=== PATIENT | male | born 1950 | race Caucasian/White ===

== ENCOUNTER → 2020-12-31 06:59 | Outpatient (CLI) | payer MEDICARE, SELFPAY ==
[2021-01-02 18:21] LABS: SARS-CoV-2 RNA PCR Negative
== END ==
PROVIDERS: PCP Internal Medicine; Visit Provider Internal Medicine Pulmonary Disease
DX: T86.810 Lung transplant rejection (principal); Z20.822 Contact with and (suspected) exposure to COVID-19
CPT/HCPCS: C9803; U0003; U0005

== ENCOUNTER → 2021-01-11 06:58 | Outpatient (CLI) | payer MEDICARE, SELFPAY ==
[2021-01-11 17:21] LABS: SARS-CoV-2 RNA PCR Negative
== END ==
PROVIDERS: PCP Internal Medicine; Visit Provider Internal Medicine Pulmonary Disease
DX: Z01.812 Encounter for preprocedural laboratory examination (principal); Z20.822 Contact with and (suspected) exposure to COVID-19
CPT/HCPCS: C9803; U0003; U0005

== ENCOUNTER 2021-07-19 07:53 | Outpatient (CLI) | payer MEDICARE, SELFPAY ==
--- NOTE | 2021-08-03 18:49 | WPDSLEEPSTUD ---
Sleep Study Date of Study: 07/19/21 Ordering Provider: Elmer Lay, Interpreting Physician: Aisha Brown MD Sleep Study Type: Split Polysomnogram Height: 1.8 m Weight: 108.8 kg Body Mass Index: 33.4 Neck Circumference (inches): 18 [place]: 3 Reason for Sleep Study Obstructive sleep apnea on CPAP, initial studies [id number] * 05/08/2009 CPAP retitration, optimal pressure 14 cm. BMI was 39.7. Sleep History Facundo Ortega is a 71 year old man with obstructive sleep apnea on CPAP. He also has a history of bilateral lung transplant 2005. He has a history of obstructive sleep apnea syndrome with his last re-titration in 2008 with an optimal pressure of 14 cm. He currently wakes himself up snoring. There is a positive family history with his father having sleep apnea. This patient has use sleeping pills. He occasionally awakens from sleep feeling short of breath. He constantly awakens at night with heartburn, belching or coughing. He frequently snores loudly. He occasionally has trouble sleeping with a cold. He rarely wakes up gasping for breath at night. He occasionally has breathing problems at night observed by others. He occasionally sweats excessively at night and notices his heart pounding or beating irregularly at night. He frequently falls asleep during the day never involuntarily and never while driving. He does not have loss of muscle tone with strong emotion. He does not have daytime difficulties due to excessive sleepiness. He does not feel paralyzed on waking or falling asleep. He rarely has vivid dreamlike scenes upon awakening or falling asleep. He does not feel afraid to go to sleep. He occasionally has nightmares. He rarely remembers his dreams. He does not have racing thoughts. He occasionally feels sad or depressed. He occasionally has anxiety. He rarely has muscular tension. He occasionally notices parts of his body jerking. He rarely kicks at night. He rarely has crawling and aching feelings in his legs. He occasionally has leg pain at night. He does not have morning jaw pain. His normal bedtime is 11:00 p.m. taking 1-2 hours to fall asleep typically waking twice at night to urinate. He may stay awake 10 minutes. He wakes in the morning at 9:00 a.m.. On the weekends his schedule is similar. He estimates getting 8 hours of sleep at night. He takes naps in the afternoon or evening. A short nap is not refreshing. He feels better in the afternoon compared to other times of day he occasionally wakes up feeling refreshed, not always. Habits: Never smoked tobacco. No caffeine, alcohol or recreational drugs. COUNT INCLUDES THE [facility] Past Medical History Medical History (Updated 08/03/21 @ 20:42 by Aisha Brown MD) Back pain Chronic kidney disease Coronary artery disease Depression Diabetes Hypertension Obstructive sleep apnea Pneumonia due to COVID-19 virus Type 2 diabetes mellitus Surgical History Surgical History (Updated 08/03/21 @ 20:42 by Aisha Brown MD) Lung replaced by transplant Double lung transplant S/P CABG x 3 Status post surgical removal of malignant neoplasm of skin Skin cancer removed from right shoulder. Family History Family History (Updated 06/27/21 @ 10:01 by Ivone Childs [facility]) Mother Diabetes mellitus Social History Social History Smoking status: Never smoker Alcohol intake: never Medications Home Medications Medication Instructions Recorded Confirmed Type cetirizine 10 mg tablet 10 mg PO DAILY PRN 12/16/20 06/27/21 History fluticasone propionate 50 1 spray INTRANASAL Q12H 12/16/20 06/27/21 History mcg/actuation nasal spray,suspension multivitamin 1 tablet PO DAILY 12/16/20 06/27/21 History mycophenolate sodium 360 mg 720 mg PO BID 12/16/20 06/27/21 History tablet,delayed release sumatriptan succinate 50 mg tablet See Rx Instructions PO .COMPLEX 12/16/20 06/27/21 History alprazolam 0.5 mg tablet 1 mg PO DAILY tablet
[2021-08-03 20:54] VITALS: BMI 33.4
== END 2021-07-20 06:11 | disposition home or self-care (01) ==
LOC: ANHCSM 07:55
PROVIDERS: PCP Internal Medicine; Visit Provider Internal Medicine Pulmonary Disease
DX: G47.33 Obstructive sleep apnea (adult) (pediatric) (principal); Z99.89 Dependence on other enabling machines and devices
CPT/HCPCS: 95811

== ENCOUNTER 2022-01-02 11:44 | Outpatient (CLI) | payer MEDICARE, SELFPAY ==
[2022-01-02 12:36] LABS: Alanine Aminotransferase 16 U/L (4-50); Albumin Level 3.7 g/dL (3.5-5.1); Alkaline Phosphatase 53 U/L (38-126); Anion Gap 5 mmol/L (8-16); Aspartate Amino Transferase 18 U/L (17-59); Bilirubin,Total 0.2 mg/dL (0.2-1.3); Blood Urea Nitrogen 25 mg/dL (9-20); Calcium 8.9 mg/dL (8.4-10.2); Carbon Dioxide 29 mmol/L (22-30); Chloride 105 mmol/L (98-107); Estimated Glomerular Filt Rate 46; Glucose 194 mg/dL (65-110); Potassium 4.2 mmol/L (3.4-5.0); Sodium 139 mmol/L (137-145)
[2022-01-02 13:05] LABS: Thyroid Stimulating Hormone 0.518 uIU/mL (0.465-4.680)
== END 2022-01-02 11:45 | disposition home or self-care (01) ==
LOC: ANHLAB 11:47
PROVIDERS: PCP Internal Medicine; Visit Provider Internal Medicine
DX: E11.9 Type 2 diabetes mellitus without complications (principal); Z79.4 Long term (current) use of insulin; R06.00 Dyspnea, unspecified
CPT/HCPCS: 36415; 80053; 84443

== ENCOUNTER 2022-03-28 13:30 | Outpatient (RCR) | payer MEDICARE, SELFPAY ==
[2022-01-29 13:40] LABS: Glucose Point of Care 142 mg/dl (65-105)
[2022-01-31 15:26] LABS: Glucose Point of Care 64 mg/dl (65-105)
[2022-01-31 15:26] LABS: Glucose Point of Care 57 mg/dl (65-105)
[2022-01-31 15:26] LABS: Glucose Point of Care 73 mg/dl (65-105)
[2022-01-31 15:27] LABS: Glucose Point of Care 88 mg/dl (65-105)
[2022-02-07 13:41] LABS: Glucose Point of Care 224 mg/dl (65-105)
[2022-02-07 14:37] LABS: Glucose Point of Care 224 mg/dl (65-105)
[2022-03-12 14:35] LABS: Glucose Point of Care 168 mg/dl (65-105)
[2022-03-26 14:40] LABS: Glucose Point of Care 120 mg/dl (65-105)
== END 2022-03-28 14:39 | disposition home or self-care (01) ==
LOC: ANHCPREHAB 13:30
PROVIDERS: PCP Internal Medicine
DX: I20.8 Other forms of angina pectoris (principal)
CPT/HCPCS: 93798

== ENCOUNTER 2023-07-17 14:14 | Outpatient (CLI) | payer MEDICARE, SELFPAY ==
--- NOTE | ~2023-07-17 | CT_ITS ---
EXAMINATION: CT abdomen pelvis w con DATE: 07/17/2023 14:50 INDICATION: Diverticulitis. TECHNIQUE: Computed tomography (CT) of the abdomen and pelvis was performed with 100 mL Omnipaque 350 intravenous contrast. Automated exposure control and iterative reconstruction technique were employe d. The dose-length product was 1011.53 mGy-cm. COMPARISON: None. FINDINGS: The visualized portions of the lung bases demonstrate mild atelectasis and mild chronic rod g disease. No pleural effusion. The heart size is normal. No pericardial effusion. There are coronary artery calcifications. There is mild elevation of left hemidiaphragm. The gallbladder is normal. Dilip cifications in the spleen are consistent with old granulomatous disease. The pancreas and adrenal gla nds are normal. There is cortical thinning of the kidneys. There is a 1.6 cm hyperdense mass in right kidney. There are cysts in left kidney measuring up to 15 mm . There is calcified atherosclerosis of the aorta and many of the other arteries. The prostate is mildly enlarged. There is a left inguinal hernia containing fat. There is diverticulosis of the colon without evidence of diverticulitis. There are no dilated loops of bowel. The appendix is normal. There are no pathologically enlarged lymph no ernesto. There is no free intraperitoneal fluid. There is mild thoracic spondylosis and severe lower lumb ar spondylosis. IMPRESSION: 1. No evidence of diverticulitis. 2. 1.6 cm kidney mass which may be a hemorrhagic cyst or less likely a neoplasm. Abdomen CT without a nd with contrast is recommended. Reviewed, dictated and finalized at location A. IMPRESSION: 1. No evidence of diverticulitis. 2. 1.6 cm kidney mass which may be a hemorrhagic cyst or less likely a neoplasm . Abdomen CT without and with contrast is recommended.
[2023-07-17 14:48] LABS: Estimated Glomerular Filt Rate > 60
== END 2023-07-17 14:15 | disposition home or self-care (01) ==
PROVIDERS: PCP Internal Medicine
DX: K57.92 Diverticulitis of intestine, part unspecified, without perforation or abscess without bleeding (principal)
CPT/HCPCS: 74177; Q9967

== ENCOUNTER 2023-08-08 12:35 | Outpatient (CLI) | payer MEDICARE, SELFPAY ==
--- NOTE | ~2023-08-08 | CT_ITS ---
EXAMINATION: CT abdomen pelvis wo/w con DATE: 08/08/2023 13:21 INDICATION: Right kidney mass. TECHNIQUE: Computed tomography (CT) of the abdomen and pelvis was performed without and with 100 mL O mnipaque 350 intravenous contrast. Automated exposure control and iterative reconstruction technique were employed. The dose-length product was 1977.70 mGy-cm. COMPARISON: CT abdomen and pelvis 07/17/2023 FINDINGS: The visualized portions of the lung bases demonstrate chronic interstitial lung disease. No pleural effusion. Calcified right hilar lymph nodes are consistent with old granulomatous disease. T he heart size is normal. There are coronary artery calcifications. There are changes of coronary emmanuel ry bypass grafting. No pericardial effusion. Calcifications in the liver and spleen are consistent wi th old granulomatous disease. There are gallstones in the gallbladder, which is normal in size. The p ancreas and adrenal glands are normal. There is cortical thinning of the kidneys. There is a 16 mm en hancing mass in right kidney inferior pole. There is a 12 mm cyst in left kidney. There is diverticul osis of the colon without evidence of diverticulitis. There are no dilated loops of bowel. The append ix is normal. There is mild thoracic spondylosis. There is severe lower lumbar spondylosis. IMPRESSION: 1. 16 mm enhancing mass in right kidney, consistent with renal cell carcinoma. Reviewed, dictated and finalized at location E.
== END 2023-08-08 12:36 | disposition home or self-care (01) ==
PROVIDERS: PCP Internal Medicine; Visit Provider Clinical Nurse Specialist
DX: R93.5 Abnormal findings on diagnostic imaging of other abdominal regions, including retroperitoneum (principal); N28.89 Other specified disorders of kidney and ureter
CPT/HCPCS: 74178; Q9967

== ENCOUNTER 2023-09-01 11:06 | Inpatient (IN) | payer MEDICARE, SELFPAY ==
[2023-09-01] VITALS (18 sets, daily range): BP systolic 93–155; BP diastolic 58–76; PULSE 61–100; RESP 13–20; TEMP 36.1–36.4; O2SAT 93–97; BMI 31.0
--- NOTE | ~2023-09-01 | CT_ITS ---
EXAMINATION: CT cervical spine wo con DATE: 09/01/2023 14:13 INDICATION: fall TECHNIQUE: Computed tomography (CT) of the cervical spine was performed without intravenous contrast. Automated exposure control and iterative reconstruction technique were employed. The dose-length pro duct was 428.00 mGy-cm. COMPARISON: None. FINDINGS: Vertebral Body Alignment: Multilevel trace anterolistheses, presumably on a degenerative basis. Craniocervical and atlantoaxial alignment: Moderate degenerative change. Alignment intact. Osseous structures/fracture: No evidence of a lytic or blastic process in the visualized spine. No e vidence of acute fracture. Cervical soft tissues: The paraspinal soft tissues planes are maintained. Trace left mastoid fluid. B ilateral apical bullae. Degenerative changes: Multilevel moderate degenerative disc disease and facet arthropathy. No severe central canal or neural foraminal narrowing. IMPRESSION: No acute fracture or traumatic malalignment in the cervical spine. Reviewed, dictated and finalized at location K.
--- NOTE | ~2023-09-01 | XR_ITS ---
EXAM: XR tibia fibula LT 2V DATE: 09/01/2023 17:33 HISTORY: left lobato pain after fall . COMPARISON: None available. FINDINGS: Decreased mineralization. No fracture or dislocation. No lytic or blastic lesion. Degenera tive changes in the knee and ankle. Quadriceps and patellar enthesopathy. No erosion or periosteal ch juan francisco. Vascular calcifications. Medial surgical clips. IMPRESSION: No acute osseous finding in the left tibia or fibula. Reviewed, dictated and finalized at location K.
--- NOTE | ~2023-09-01 | XR_ITS ---
EXAMINATION: XR ribs LT 2V w CXR 2V Exam Date/Time: 09/01/2023 13:45 CDT HISTORY: fall, left lateral rib pain Comparison: 12/20/2017; CT cap 09/01/2023. RESULT: Lines, tubes, and devices: Intact sternotomy wires. Lungs and pleura: Coarse diffuse interstitial changes. Left hemidiaphragm elevation.. Cardiothymic silhouette: Stable. Other: No acute osseous or upper abdominal finding. Known left rib fracture is not radiographically identified. IMPRESSION: No acute cardiopulmonary process. Reviewed, dictated and finalized at location K.
--- NOTE | ~2023-09-01 | US_ITS ---
EXAMINATION: US carotid duplex BI DATE: 09/02/2023 09:12 INDICATION: Syncope. TECHNIQUE: Grayscale, color Doppler, and pulsed Doppler images of the cervical carotid arteries were obtained. The degree of vessel stenosis is placed in one of the following categories: normal, <50%, 5 0-69%, >=70% but less than near-occlusion, near-occlusion, or total occlusion. Note that percent sten osis relative to normal distal artery lumen diameter is indirectly measured from velocity measurement s as described by Blair, et al. Radiology 2003; 229:340-346. COMPARISON: None. FINDINGS: RIGHT: The right common carotid artery (CCA) peak systolic velocity (PSV) is 70 cm/s. The right internal car otid artery (ICA) PSV is 75 cm/s. The right ICA end-diastolic velocity (EDV) is 20 cm/s. The right IC A/CCA PSV ratio is 1.1. Grayscale and color Doppler images yield an estimate of <50% diameter reducti on from plaque in the ICA. There is antegrade flow in the right vertebral artery. LEFT: The left CCA PSV is 83 cm/s. The left ICA PSV is 154 cm/s. The left ICA EDV is 38 cm/s. The left ICA/ CCA PSV ratio is 1.9. Grayscale and color Doppler images yield an estimate of <50% diameter reduction from plaque in the ICA. There is antegrade flow in the left vertebral artery. IMPRESSION: 1. <50% stenosis in the right internal carotid artery. 2. <50% stenosis in the left internal carotid artery. Reviewed, dictated and finalized at location E.
--- NOTE | ~2023-09-01 | XR_ITS ---
EXAM: XR mandible min 4V DATE: 09/01/2023 17:33 HISTORY: Right chin pain/swelling after fall . COMPARISON: None available. FINDINGS: Normal mineralization. Frontal chin down view limited by overlapping soft tissues. No frac ture or dislocation. No lytic or blastic lesion. Joint spaces and physes are maintained. No erosion o r periosteal change. Soft tissues within normal limits. IMPRESSION: No acute osseous finding in the mandible. Reviewed, dictated and finalized at location K.
--- NOTE | ~2023-09-01 | CT_ITS ---
EXAMINATION: CT chest abdomen pelvis w con DATE: 09/01/2023 14:13 INDICATION: fall,lt chest pain, left upper abdominal pain . TECHNIQUE: Computed tomography (CT) of the chest, abdomen, and pelvis was performed with 100 mL Omnip aque-350 intravenous contrast. Automated exposure control and iterative reconstruction technique were employed. The dose-length product was 1691.57 mGy-cm. COMPARISON: None FINDINGS: CHEST: No thoracic aortic injury. Moderate arch calcification. No mediastinal hematoma. No pericardial effusion. Heavy coronary artery calcification. Prior CABG. No acute lung injury. Archi tectural distortion and emphysematous change. No pleural effusion or pneumothorax. ABDOMEN/PELVIS: No solid organ injury. Hepatic steatosis. Right inferior pole mass. No evidence of bowel or mesenteric injury. Cholelithiasis. No free fluid or free air. No retroperitoneal hematoma. Pelvic contents are atraumatic. Asymmetric bladder wall thickening. MUSCULOSKELETAL: Chronic right anterolateral fourth and fifth rib fractures. Acute mildly displaced left 10th lateral rib frac ture. Acute nondisplaced left anterolateral seventh through ninth rib fractures No fracture or traumatic malalignment of the thoracic or lumbar spine. IMPRESSION: Acute mildly displaced left 10th lateral and nondisplaced left anterolateral seventh through ninth ri b fractures. Otherwise no acute process detected in the chest, abdomen, or pelvis. Asymmetric bladder wall thickening, consider urology referral for cystoscopy. Known right renal carcinoma. Reviewed, dictated and finalized at location K. IMPRESSION: Acute mildly displaced left 10th lateral and nondisplaced left anterolateral se venth through ninth rib fractures. Otherwise no acute process detected in the chest, abdomen, or pelvis. Asymmetric bladder wall thickening, consider urology referral for cystoscopy. Known right renal carcinoma.
--- NOTE | ~2023-09-01 | CT_ITS ---
EXAMINATION: CT brain wo con DATE: 09/01/2023 14:12 INDICATION: fall . TECHNIQUE: Computed tomography (CT) of the head was performed without intravenous contrast. The mA wa s adjusted according to patient size. Iterative reconstruction technique was employed. The dose-lengt h product was 529.67 mGy-cm. COMPARISON: None. FINDINGS: No acute intracranial hemorrhage or extra-axial fluid collection. No hydrocephalus, mass, or herniation. No acute ischemic infarct. Unremarkable dural venous sinus attenuation. No acute osseous abnormality. The aerated spaces are clear. Mild atrophy and chronic white matter change. Atherosclerotic intracranial calcification. Bilateral l ens replacements. Bilateral basal tendon calcification. IMPRESSION: No acute intracranial process. Reviewed, dictated and finalized at location K.
--- NOTE | 2023-09-01 12:32 | ED.FALL ---
HPI - Fall General Chief Complaint: Fall Stated Complaint: fell last night, left rib pain Time Seen by Provider: 09/01/23 12:25 Source: patient History of Present Illness HPI Narrative: 73 years old white male came to the ED by private car complaining of syncope and a fall at 3 AM. Patient reported waking up at 3 AM to go to the bathroom, was in the standing position, not urinating or defecating at this time, was about to sit on the toilet and woke up on the floor. Unknown duration of syncope. Complains of left lower chest, left upper abdominal pain, chin laceration and pain and forearms bruises. Patient on aspirin. Unknown last tetanus Related Data Home Medications Medication Instructions Recorded Confirmed cetirizine 10 mg tablet (Zyrtec) 10 mg PO DAILY PRN 12/16/20 07/31/23 fluticasone propionate 50 1 spray intranasal Q12H 12/16/20 07/31/23 mcg/actuation nasal spray,suspension multivitamin 1 tablet PO DAILY 12/16/20 07/31/23 mycophenolate sodium 360 mg 720 mg PO BID 12/16/20 07/31/23 tablet,delayed release (Myfortic) alprazolam 0.5 mg tablet 1 mg PO BID PRN Anxiety 12/27/20 07/31/23 azithromycin 500 mg tablet 500 mg PO USEASDIRECTD 12/27/20 07/31/23 (Zithromax) cholecalciferol (vitamin D3) 25 5,000 unit PO DAILY 12/27/20 07/31/23 mcg (1,000 unit) capsule citalopram 40 mg tablet (Celexa) 40 mg PO DAILY 12/27/20 07/31/23 diclofenac sodium 1 % topical gel 2 g topical BID 12/27/20 07/31/23 (Voltaren) furosemide 20 mg tablet (Lasix) 40 mg PO QAM 12/27/20 07/31/23 nitroglycerin 0.3 mg sublingual 0.3 mg sublingual Q5M PRN Chest 12/27/20 07/31/23 tablet (Nitrostat) Pain omeprazole 40 mg capsule,delayed 40 mg PO DAILY 12/27/20 07/31/23 release polyethylene glycol 3350 17 17 g PO DAILY 12/27/20 07/31/23 gram/dose oral powder (Miralax) prednisone 10 mg tablet 10 mg PO DAILY 12/27/20 07/31/23 rosuvastatin 20 mg tablet (Crestor) 20 mg PO DAILY 12/27/20 07/31/23 sulfamethoxazole 800 1 tablet PO .MWF 12/27/20 07/31/23 mg-trimethoprim 160 mg tablet (Bactrim DS) tamsulosin 0.4 mg capsule (Flomax) 0.4 mg PO DAILY 12/27/20 07/31/23 zolpidem 10 mg tablet (Ambien) 10 mg PO .QHS PRN Sleep 12/27/20 07/31/23 insulin aspart U-100 100 unit/mL 14 unit subcut QID 06/27/21 07/31/23 (3 mL) subcutaneous pen (Novolog FlexPen U-100 Insulin aspart) insulin glargine 100 unit/mL 30 unit subcut QAM 06/27/21 07/31/23 subcutaneous solution (Lantus U-100 Insulin) potassium chloride 20 mEq 40 meq PO BID 06/27/21 07/31/23 tablet,extended release tacrolimus 0.5 mg capsule, 1.5 mg PO Q12H 06/27/21 07/31/23 immediate-release acetaminophen 500 mg oral powder 1,000 mg PO Q6H PRN Pain (Scale 01/10/22 07/31/23 packet Score 1-3) albuterol 90 mcg/actuation aerosol See Rx Instructions .Route .COMPLEX 01/10/22 07/31/23 inhaler amlodipine 10 mg tablet 10 mg PO DAILY 01/10/22 07/31/23 calcium carbonate-vitamin D3 500 1,500 tablet PO 01/10/22 07/31/23 mg(1,250 mg)-600 unit chewable tablet carvedilol 25 mg tablet 25 mg PO Q12H 01/10/22 07/31/23 insulin lispro 100 unit/mL 1 sliding scale dose subcut 01/10/22 07/31/23 subcutaneous pen USEASDIRECTD mycophenolate sodium 360 mg PO BID 01/10/22 01/10/22 trospium 20 mg tablet 20 mg PO BID 01/10/22 07/31/23 isosorbide dinitrate 30 mg tablet 30 mg PO TID 07/31/23 07/31/23 Allergies Allergy/AdvReac Type Severity Reaction Status Date / Time No Known Allergies Allergy Unverified 07/31/23 14:48 Review of Systems Review of Systems: All systems reviewed & are unremarkable except as noted in HPI and below [facility] Past Medical History Medical History (Updated 09/01/23 @ 16:40 by Merari Yost PA-C) Chronic kidney disease, stage 3 Coronary artery disease Deep vein thrombophlebitis of right leg (10/2020) Depression Hypertension Obstructive sleep apnea Pneumonia due to COVID-19 virus Right renal mass Followed by [facility] in [place] with upcoming plans f
[2023-09-01 12:44] LABS: Basophils Percent Auto 0.4 % (0.2-1.2); Eosinophils Percent Auto 0.2 % (0-4.4); Hematocrit 47.8 % (42.0-52.0); Hemoglobin 14.6 g/dL (14.0-18.0); Immature Granulocyte Absolute 0.06 K/mm3 (0.00-0.031); Immature Granulocyte Percent A 0.7 % (0-0.5); Lymphocytes Absolute Auto 1.78 K/mm3 (0.9-3.2); Lymphocytes Percent Auto 21.3 % (18.3-44.2); Mean Corpuscular HGB Conc 30.5 g/dl (32-36); Mean Corpuscular Hemoglobin 26.5 pg (26-34); Mean Corpuscular Volume 86.8 fl (80-100); Mean Platelet Volume 9.8 fl (7.4-10.4); Monocytes Absolute Auto 0.9 K/mm3 (0.1-0.6); Monocytes Percent Auto 10.7 % (2.6-8.5); Neutrophils Absolute Auto 5.6 K/mm3 (1.3-6.7); Neutrophils Percent Auto 66.7 % (45.5-73.1); Platelet Count Result 159 k/mm3 (150-375); Red Blood Count 5.51 M/mm3 (4.6-6.20); Red Cell Distribution Width 14.8 % (11.5-14.5); White Blood Count 8.4 K/mm3 (4.5-10.0)
[2023-09-01 12:44] LABS: Glucose Point of Care 163 mg/dl (65-105)
[2023-09-01 12:53] LABS: Alanine Aminotransferase 16 U/L (6-50); Albumin Level 3.8 g/dL (3.5-5.1); Alkaline Phosphatase 75 U/L (38-126); Anion Gap 3 mmol/L (8-16); Aspartate Amino Transferase 16 U/L (17-59); Bilirubin,Total 0.7 mg/dL (0.2-1.3); Blood Urea Nitrogen 24 mg/dL (9-20); Calcium 9.5 mg/dL (8.4-10.2); Carbon Dioxide 33 mmol/L (22-30); Chloride 97 mmol/L (98-107); Estimated CRCL calculation 49 ml/min; Estimated Glomerular Filt Rate 60; Glucose 151 mg/dL (65-110); Lipase 24 U/L (23-300); Sodium 133 mmol/L (137-145)
[2023-09-01] MEDS: TETANUS,DIPHTHERIA,AC PERTUSSIS ADULT (0.5 ML) BOOSTRIX IM (14:47)
[2023-09-01 15:42] LABS: Appearance Urine Clear (Clear); Bilirubin Urine Negative (Negative); Blood Urine Negative (Negative); Color Urine Yellow (Yellow); Glucose Urine UA 3+ mg/dL (Negative); Ketones Urine Negative (Negative); Leukocyte Esterase Ur Negative LEU/UL (Negative); Nitrate Urine Negative (Negative); Protein Urine Negative (Negative)
[2023-09-01 15:46] LABS: SARS-CoV-2 RNA PCR Negative (Negative)
[2023-09-01 16:14] LABS: Add Urine Microscopic? NO; Specific Grav Ur 1.062 (1.001-1.035)
--- NOTE | 2023-09-01 16:21 | PM.IMHP ---
H&P: HPI History of Present Illness Date/Time: 09/01/23 16:25 Chief Complaint: Left rib pain after syncope. 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 The patient provides the following history. Yesterday he was feeling a bit lightheaded and dizzy when up and about. At about 03:00 he got up to use the restroom and just as he was walking into the bathroom he started to feel very weak and lightheaded and he lost consciousness, falling forward onto the commode. He struck the left side of his chest and the right side of his chin/jaw on the toilet before falling to the floor. He came to quite quickly and does not think he was out for very long. He has positive orthostatic vital signs and with further questioning he admits that he has not had good oral intake for several weeks if not longer. He just does not have much of an appetite and when he does eat he has early satiety and bloating. He has noticed that his urine is darker than usual with decreased output. He has not had any significant changes in weight and he denies recent change in medications. He also denies cold and flu symptoms, chest pain, pleuritic pain, palpitations, shortness of breath, vomiting, diarrhea (in fact he is ongoing issues with constipation), melena, hematochezia, and dysuria. Pertinent labs today include a sodium of 133, potassium 4.0, chloride 97, carbon dioxide 33, BUN 24, creatinine 1.20, glucose 151. Urine had a high specific gravity. CT of the head and neck showed no acute findings. CT of the chest, abdomen, and pelvis showed acute mildly displaced left 10th lateral and nondisplaced left anterior lateral 7th through 9th rib fractures otherwise no acute process detected. That scan did note known right renal mass concerning for renal cell carcinoma for which he has an upcoming appointment for IR biopsy and ablation, as well as asymmetric bladder wall thickening. He received a tetanus shot and a normal saline bolus in the ED and he is being admitted in this setting for further hydration and close monitoring. Review of Systems Review of Systems: Twelve systems were reviewed and are negative except for as per HPI. [facility] Past Medical History Medical History Chronic kidney disease, stage 3 Coronary artery disease Deep vein thrombophlebitis of right leg (10/2020) Depression Hypertension Obstructive sleep apnea Pneumonia due to COVID-19 virus Right renal mass Followed by [facility] in [place] with upcoming plans for IR biopsy and ablation. Skin cancer Type 2 diabetes mellitus Surgical History Surgical History History of cardiac catheterization History of coronary artery bypass graft x 3 (02/14/18) History of lung transplantation (01/15/06) Bilateral. Lung transplant status Status post surgical removal of malignant neoplasm of skin Skin cancer removed from right shoulder. Family History Family History Mother Diabetes mellitus Father Heart disease Sibling Hypertension Hypercholesteremia Sibling Hypertension Hypercholesteremia Social History Social History Social History: Surrogate medical decision maker: Angie Ortega, spouse. Code status: Full code. Smoking packs per day: 1 Smoking cigarettes per day: 20.0 Years smoked: 30 Smoking pack-years: 30.00 Smoking status: Former smoker Tobacco type: cigarettes Smoking end d
--- NOTE | 2023-09-01 16:24 | ECG_ITS ---
Measurements Intervals [place] Rate: 82 P: 42 NC: 139 QRS: 37 QRSD: 95 T: 55 QT: 393 QTc: 460 Interpretive Statements SINUS RHYTHM POSSIBLE RIGHT VENTRICULAR CONDUCTION DELAY [RSR (QR) IN V1/V2] BORDERLINE ECG NO PREVIOUS ECG AVAILABLE FOR COMPARISON Electronically Signed On 09-02-2023 8:48:48 CDT by Gabriel Byrd M.D.
[2023-09-01] MEDS: MORPHINE SULFATE (*CRX) 4 MG/ML INJ 2 MG IV PUSH (18:00)
[2023-09-01] MEDS: SODIUM CHLORIDE 0.9% IV 1,000 ML 75 ML IV CONT (18:02)
[2023-09-01] MEDS: SODIUM CHLORIDE 0.9% IV 1,000 ML 999 ML IV CONT (18:04)
[2023-09-01 19:00] LABS: Hemoglobin A1C 7.1 % (<5.7)
[2023-09-01 20:55] LABS: Glucose Point of Care 197 mg/dl (65-105)
[2023-09-01] MEDS: FLUTICASONE PROPIONATE 0.05% NA SPR 16 GM BTL (*BKC) 1 SPRAY NASAL (21:54)
[2023-09-01] MEDS: HYDROcodone/acetaminophen (*CRX) 5-325 MG TABLET 1 TAB PO (21:54)
[2023-09-01] MEDS: TACROLIMUS 0.5 MG CAPSULE 1 MG PO (22:08)
[2023-09-02] VITALS (10 sets, daily range): BP systolic 108–166; BP diastolic 51–86; PULSE 83–102; RESP 13–20; TEMP 36–36.6; O2SAT 93–99
--- NOTE | 2023-09-02 | ECHO_ITS ---
Patient Info Name: Facundo Ortega Age: 73 years : 1950 Gender: Male Ht: 65 in Wt: 186 lbs BSA: 2.00 m2 HR: 91 bpm BP: 138 / 65 mmHg Heart Rhythm: Sinus Rhythm Technical Quality: Poor Exam Date: 09/02/2023 2:12 PM Exam Location: [facility] Card Pulmonary Patient Status: Inpatient Admit Date: 09/02/2023 Staff Ordering Physician: Merari Yost PA-C Retail Loan Originator: Miryam Stout RDCS Attending Provider: Jayshree Lund MD Referring Physician: Ritika SCRUGGS; Exam Type: CA echo dop color flow w con Study Info Indications R55 - Syncope and collapse Complete two-dimensional, color flow and Doppler transthoracic echocardiogram is performed with contrast to opacify the left ventricle and to improve the deliniation of the left ventricle endocardial borders. Contrast/Agitated Saline Contrast/Ag. Saline: Definity Amount: 2.00 ml Administered By: Miryam Stout RDCS Existing IV Access: Yes IV Access Condition: patent with no signs of infiltration Summary 1. Technically challenging echocardiogram, definity contrast used to improve visualization. 2. Hyperdynamic appearing left ventricular systolic function with grade 1 diastolic noncompliance. 3. Mildly sclerotic aortic valve which is not stenotic. Left Ventricle Left ventricular chamber dimension is normal. Left ventricular systolic function is hyperdynamic, estimated at >70%. The left ventricular diastolic function is grade I diastolic dysfunction. Right Ventricle Right ventricular chamber dimension is normal. Left Atria Left atrial chamber dimension is normal. Right Atria Right atrial chamber dimension is normal. Aortic Valve The aortic valve is trileaflet. There is mild aortic valve sclerosis. Pulmonic Valve The pulmonic valve is not well visualized. Mitral Valve The mitral valve has normal leaflets. Tricuspid Valve The tricuspid valve leaflets are normal. Pericardium/Pleural The pericardium appears normal. Aorta The aortic root size at the sinus of Valsalva is normal. Left Ventricular Outflow Tract Name Value Normal LVOT 2D LVOT Diameter 1.97 cm LVOT Doppler LVOT Peak Gradient 4 mmHg LVOT Mean Gradient 2 mmHg LVOT VTI 17.20 cm LVOT VTI/AV VTI Ratio 0.96 LVOT Stroke Volume 52.48 ml LVOT CO 10.61 l/min LVOT CI 5.32 L/min/m2 Pulmonic Valve Name Value Normal RVOT Doppler RVOT Peak Gradient 2 mmHg PV Doppler PV Peak Gradient 3 mmHg Mitral Valve Name Value Normal
[2023-09-02] MEDS: HYDROcodone/acetaminophen (*CRX) 5-325 MG TABLET 1 TAB PO ×2 (04:13→14:02)
[2023-09-02 06:37] LABS: Hematocrit 45.6 % (42.0-52.0); Hemoglobin 13.5 g/dL (14.0-18.0); Mean Corpuscular HGB Conc 29.6 g/dl (32-36); Mean Corpuscular Hemoglobin 26.3 pg (26-34); Mean Corpuscular Volume 88.9 fl (80-100); Mean Platelet Volume 10.2 fl (7.4-10.4); Platelet Count Result 152 k/mm3 (150-375); Red Blood Count 5.13 M/mm3 (4.6-6.20); Red Cell Distribution Width 14.8 % (11.5-14.5); White Blood Count 7.1 K/mm3 (4.5-10.0)
[2023-09-02 06:48] LABS: Anion Gap 3 mmol/L (8-16); Blood Urea Nitrogen 13 mg/dL (9-20); Calcium 8.7 mg/dL (8.4-10.2); Carbon Dioxide 28 mmol/L (22-30); Chloride 103 mmol/L (98-107); Estimated CRCL calculation 73 ml/min; Estimated Glomerular Filt Rate > 60; Glucose 106 mg/dL (65-110); Potassium 3.5 mmol/L (3.4-5.0); Sodium 134 mmol/L (137-145)
[2023-09-02] MEDS: SODIUM CHLORIDE 0.9% IV 1,000 ML 75 ML IV CONT (07:47)
[2023-09-02 07:48] LABS: Glucose Point of Care 118 mg/dl (65-105)
[2023-09-02] MEDS: CHOLECALCIFEROL 1,000 UNITS TABLET 5000 UNITS PO (08:08)
[2023-09-02] MEDS: CITALOPRAM HYDROBROMIDE 20 MG TABLET 40 MG PO (08:08)
[2023-09-02] MEDS: polyethylene glycoL 3350 17 GM POWD.PACK PO (08:09)
[2023-09-02] MEDS: predniSONE 10 MG TABLET PO (08:09)
[2023-09-02] MEDS: TACROLIMUS 0.5 MG CAPSULE 1 MG PO ×2 (08:09→20:22)
[2023-09-02] MEDS: MORPHINE SULFATE (*CRX) 4 MG/ML INJ 2 MG IV PUSH ×2 (08:09→20:27)
[2023-09-02] MEDS: PANTOPRAZOLE 40 MG TABLET PO ×2 (08:09→20:22)
[2023-09-02] MEDS: TAMSULOSIN HCL 0.4 MG CAPSULE PO (08:09)
[2023-09-02] MEDS: FLUTICASONE PROPIONATE 0.05% NA SPR 16 GM BTL (*BKC) 1 SPRAY NASAL ×2 (09:39→20:35)
[2023-09-02 11:31] LABS: Glucose Point of Care 154 mg/dl (65-105)
[2023-09-02] MEDS: INSULIN ASPART (*BKC) 100 UNITS/ML 10 UNITS SUB-Q (12:11)
[2023-09-02] MEDS: PERFLUTREN LIPID MICROSPHERES 1.5 ML VIAL DILUTED TO 10 ML TOTAL VOLUME IV PUSH (14:45)
--- NOTE | 2023-09-02 16:26 | IVDEFINITY ---
Prior to administration of IV Definity the patient was educated on the risks and benefits of the imaging enhancing agent including potential adverse side effects. The patient verbalized understanding. Allergies were verified. No exclusion criteria were identified and at least one of the following inclusion criteria were met: 1) physician request, 2) patient technically difficult to image (per the [place] [employer] Echocardi[employer] guidelines of two or more segments not discernable within the apical view), or 3) questionable left ventricular function. ?
[2023-09-02 16:29] LABS: Glucose Point of Care 142 mg/dl (65-105)
[2023-09-02] MEDS: BISMUTH SUBSALICYLATE 262 MG CHEWABLE TABLET 524 MG PO (16:38)
[2023-09-02] MEDS: ACYCLOVIR 200 MG CAPSULE PO (18:46)
--- NOTE | 2023-09-02 18:47 | PM.IMPN ---
Progress Note: A&P Assessment and Plan (1) Syncope: Code(s): R55 - Syncope and collapse Status: Acute (2) Orthostatic hypotension: Code(s): I95.1 - Orthostatic hypotension Status: Acute (3) Multiple rib fractures involving four or more ribs: Code(s): S22.49XA - Multiple fractures of ribs, unspecified side, initial encounter for closed fracture Status: Acute (4) Hypertension: Qualifiers: Hypertension type: essential hypertension Qualified Code(s): I10 - Essential (primary) hypertension Code(s): I10 - Essential (primary) hypertension Status: Acute (5) Type 2 diabetes mellitus: Code(s): E11.9 - Type 2 diabetes mellitus without complications Status: Acute (6) Right renal mass: Code(s): N28.89 - Other specified disorders of kidney and ureter Status: Acute (7) Lung transplant status: Code(s): Z94.2 - Lung transplant status Status: Acute (8) Bladder wall thickening: Code(s): N32.89 - Other specified disorders of bladder Status: Acute Plan Assessment and plan (1) Syncope: ?Code(s): R55 - Syncope and collapse ?Status:?Acute ?Assessment and Plan: Most likely due to orthostatic hypotension. Monitor on telemetry to rule out cardiac dysrhythmia. Check echocardiogram and carotid Doppler ultrasounds. 09/02: No abnormalities on imaging. Ready for dc. orthostatics were positive. (2) Orthostatic hypotension: ?Code(s): I95.1 - Orthostatic hypotension ?Status:?Acute ?Assessment and Plan: Positive orthostatic vital signs in ED (148/74 --> 122/67 --> 93/58). Judicious IV fluid rehydration. Initiate fall precautions. Monitor orthostatic vital signs Q shift. 09/02: IVF can be stopped (3) Multiple rib fractures involving four or more ribs: ?Code(s): S22.49XA - Multiple fractures of ribs, unspecified side, initial encounter for closed fracture ?Status:?Acute ?Assessment and Plan: [facility] trauma advises he is OK for admission here (no respiratory distress, no supplemental oxygen requirement). Analgesics available as needed. Encourage incentive spirometry. 09/02: lidocaine patch, tramadol prn, pt ot tomorrow (4) Hypertension: ?Qualifiers: ?Hypertension type:?essential hypertension? Qualified Code(s):?I10 - Essential (primary) hypertension ?Code(s): I10 - Essential (primary) hypertension ?Status:?Acute ?Assessment and Plan: Blood pressures were reviewed. Positive orthostatic vital signs as detailed above. Hold antihypertensives for now and monitor closely. 09/02: ct home meds on dc tomorrow. (5) Type 2 diabetes mellitus: ?Code(s): E11.9 - Type 2 diabetes mellitus without complications ?Status:?Acute ?Assessment and Plan: Continue basal insulin. Check hemoglobin A1c. Initiate sliding scale insulin, Accu-Cheks, and hypoglycemic protocol. 09/02: ct home meds on dc tomorrow (6) Lung transplant status: ?Code(s): Z94.2 - Lung transplant status ?Status:?Acute ?Assessment and Plan: Bilateral lung transplant in 2005. Continue mycophenolate, tacrolimus, and prednisone. (7) Right renal mass: ?Code(s): N28.89 - Other specified disorders of kidney and ureter ?Status:?Acute ?Assessment and Plan: Followed by [facility] with plans for upcoming IR biopsy and ablation. 09/02: appointment on Saturday (8) Bladder wall thickening: ?Code(s): N32.89 - Other specified disorders of bladder ?Status:?Acute ?Assessment and Plan: Asymmetric bladder wall thickening noted on CT. Can follow-up with specialist at [facility] as above. 9. OLE and hyponatremia 09/02: resolved with IVF. Time Spent With Patient Time: 30 min Subjective Date/time seen: 09/02/23 18:47 Interval history: pt still complaining of rib pain. going to renal appointment on Saturday.
[2023-09-02] MEDS: INSULIN GLARGINE (*BKC) 100 UNITS/ML 30 UNITS SUB-Q (20:28)
[2023-09-02 21:03] LABS: Glucose Point of Care 200 mg/dl (65-105)
[2023-09-03 00:02] VITALS: PULSE 95
[2023-09-03 04:00] VITALS: BP 159/78; PULSE 94; RESP 14; TEMP 36.4; O2SAT 96
[2023-09-03 04:03] VITALS: PULSE 92
[2023-09-03 07:35] LABS: Glucose Point of Care 122 mg/dl (65-105)
[2023-09-03 08:00] VITALS: BP 159/81; PULSE 94; RESP 16; TEMP 35.8; O2SAT 95
[2023-09-03 08:22] VITALS: BP 107/60; BP 131/69
[2023-09-03] MEDS: LIDOCAINE 5% PATCH 1 PATCH TRANSDERM (08:32)
[2023-09-03] MEDS: predniSONE 10 MG TABLET PO (08:33)
[2023-09-03] MEDS: TACROLIMUS 0.5 MG CAPSULE 1 MG PO (08:33)
[2023-09-03] MEDS: CITALOPRAM HYDROBROMIDE 20 MG TABLET 40 MG PO (08:33)
[2023-09-03] MEDS: CHOLECALCIFEROL 1,000 UNITS TABLET 5000 UNITS PO (08:33)
[2023-09-03] MEDS: ACYCLOVIR 200 MG CAPSULE PO (08:33)
[2023-09-03] MEDS: polyethylene glycoL 3350 17 GM POWD.PACK PO (08:33)
[2023-09-03] MEDS: PANTOPRAZOLE 40 MG TABLET PO (08:33)
[2023-09-03] MEDS: INSULIN ASPART (*BKC) 100 UNITS/ML 10 UNITS SUB-Q ×2 (08:34→12:17)
[2023-09-03] MEDS: FLUTICASONE PROPIONATE 0.05% NA SPR 16 GM BTL (*BKC) 1 SPRAY NASAL (08:34)
[2023-09-03] MEDS: MORPHINE SULFATE (*CRX) 4 MG/ML INJ 2 MG IV PUSH (08:40)
[2023-09-03 11:30] LABS: Glucose Point of Care 171 mg/dl (65-105)
[2023-09-03 12:00] VITALS: BP 127/78; PULSE 99; RESP 16; TEMP 36; O2SAT 98
--- NOTE | 2023-09-03 15:39 | PM.DS ---
DS: Admitting Diagnosis Discharge Date 09/03/23 Admitting Diagnosis pain from fall, syncope DS: Discharge Diagnosis Discharge Diagnosis Plan Assessment and plan (1) Syncope: ?Code(s): R55 - Syncope and collapse ?Status:?Acute ?Assessment and Plan: Most likely due to orthostatic hypotension. Monitor on telemetry to rule out cardiac dysrhythmia. Check echocardiogram and carotid Doppler ultrasounds. 09/02: No abnormalities on imaging. Ready for dc. orthostatics were positive on admission, indicating dehydration as the cause. (2) Orthostatic hypotension: ?Code(s): I95.1 - Orthostatic hypotension ?Status:?Acute ?Assessment and Plan: Positive orthostatic vital signs in ED (148/74 --> 122/67 --> 93/58). Judicious IV fluid rehydration. Initiate fall precautions. Monitor orthostatic vital signs Q shift. 09/02: IVF can be stopped (3) Multiple rib fractures involving four or more ribs: ?Code(s): S22.49XA - Multiple fractures of ribs, unspecified side, initial encounter for closed fracture ?Status:?Acute ?Assessment and Plan: [facility] trauma advises he is OK for admission here (no respiratory distress, no supplemental oxygen requirement). Analgesics available as needed. Encourage incentive spirometry. 09/02: lidocaine patch, tramadol prn, pt ot tomorrow 09/03: lidocaine patch did not work. will prescribe tramadol for 1 week. (4) Hypertension: ?Qualifiers: ?Hypertension type:?essential hypertension? Qualified Code(s):?I10 - Essential (primary) hypertension ?Code(s): I10 - Essential (primary) hypertension ?Status:?Acute ?Assessment and Plan: Blood pressures were reviewed. Positive orthostatic vital signs as detailed above. Hold antihypertensives for now and monitor closely. 09/02: ct home meds on dc tomorrow. (5) Type 2 diabetes mellitus: ?Code(s): E11.9 - Type 2 diabetes mellitus without complications ?Status:?Acute ?Assessment and Plan: Continue basal insulin. Check hemoglobin A1c. Initiate sliding scale insulin, Accu-Cheks, and hypoglycemic protocol. 09/02: ct home meds on dc tomorrow (6) Lung transplant status: ?Code(s): Z94.2 - Lung transplant status ?Status:?Acute ?Assessment and Plan: Bilateral lung transplant in 2005. Continue mycophenolate, tacrolimus, and prednisone. (7) Right renal mass: ?Code(s): N28.89 - Other specified disorders of kidney and ureter ?Status:?Acute ?Assessment and Plan: Followed by [facility] with plans for upcoming IR biopsy and ablation. 09/02: appointment on Saturday (8) Bladder wall thickening: ?Code(s): N32.89 - Other specified disorders of bladder ?Status:?Acute ?Assessment and Plan: Asymmetric bladder wall thickening noted on CT. Can follow-up with specialist at [facility] as above. 9. OLE and hyponatremia 09/02: resolved with IVF. Time Spent With Patient Time: 25 min DS: Summary Hospital Course Reason for hospitalization: syncope, dehydration Hospital Course: See a/p section Received IVF for dehydration and orthostatic hypotension echo negative received prn pain meds for rib fractures from fall Needs to have outpt f/u for renal mass LEYDI Recommend stop lasix, discuss coreg and amlodipine with pcp at in. Can continue on dc. Prescribed 21 tabs of tramadol. Status at Discharge Cognitive/behavioral status at discharge: Good, at baseline Time Spent with Patient Time attestation: Total time spent providing and/or coordinating discharge services: Exam Narrative: General:?Chronically ill-appearing gentleman sitting up in bed in no acute distress. Weight: 84.6 kg.? BMI: 31.0. HEENT:?Wearing corrective lenses. Small abrasion on the right side of the under chin. Pupils are reactive.? Extraocular motions intact.? Sclerae anicteric.? Conjunctiva mildly injected. Deformity over the right nasal ala from
== END 2023-09-03 16:09 | disposition home health service (06) | DRG 641 ==
LOC: ANHED 16:27 → ANH3MEDSUR 16:51
PROVIDERS: Physician Assistant; Admitting Provider Internal Medicine; Emergency Provider Emergency Medicine; PCP Internal Medicine; Visit Provider Internal Medicine
DX: E86.0 Dehydration (principal); S22.42XA Multiple fractures of ribs, left side, initial encounter for closed fracture; Z94.2 Lung transplant status; N17.9 Acute kidney failure, unspecified; I95.1 Orthostatic hypotension; N18.30 Chronic kidney disease, stage 3 unspecified; I12.9 Hypertensive chronic kidney disease with stage 1 through stage 4 chronic kidney disease, or unspecified chronic kidney disease; I25.10 Atherosclerotic heart disease of native coronary artery without angina pectoris; E11.22 Type 2 diabetes mellitus with diabetic chronic kidney disease; E87.1 Hypo-osmolality and hyponatremia; N32.9 Bladder disorder, unspecified; N28.89 Other specified disorders of kidney and ureter; F32.A Depression, unspecified; G47.33 Obstructive sleep apnea (adult) (pediatric); W19.XXXA Unspecified fall, initial encounter; Z20.822 Contact with and (suspected) exposure to COVID-19; Z79.82 Long term (current) use of aspirin; Z79.4 Long term (current) use of insulin; Z86.718 Personal history of other venous thrombosis and embolism; Z95.1 Presence of aortocoronary bypass graft
CPT/HCPCS: 36415; 70110; 70450; 71046; 71100; 71260; 72125; 73590; 74177; 80048; 80053; 81003; 82948; 83036; 83690; 83735; 85025; 85027; 87635; 90471; 90715; 93005; 93880; 96361; 96374; 96375; 96376; 97161; 99285; A9270; C8929; G0378; J1815; J2270; J7030; J7512; Q9957; Q9967

== ENCOUNTER 2023-09-13 18:40 | Emergency (ER) | payer MEDICARE, SELFPAY ==
[2023-09-13] VITALS (33 sets, daily range): BP systolic 130–159; BP diastolic 64–127; PULSE 108–116; RESP 17–30; TEMP 36.8; O2SAT 96–100
--- NOTE | ~2023-09-13 | CT_ITS ---
EXAMINATION: CTA chest PE abdomen pel DATE: 09/13/2023 20:22 INDICATION: Chest pain. TECHNIQUE: Computed tomography angiography (CTA) of the chest was performed with 100 mL Omnipaque-350 intravenous contrast timed to evaluate the pulmonary arteries. Coronal maximum intensity projection 3D-reconstructions were created by the technologist. Computed tomography (CT) of the abdomen and pelv is was performed with intravenous contrast. Automated exposure control and iterative reconstruction t echnique were employed. The dose-length product was 3379.56 mGy-cm. COMPARISON: CT 09/01/2023, CT abdomen and pelvis 08/08/2023 FINDINGS: CTA chest: There is mild emphysema. The lung volumes are small. There is septal thickening in all lob es. No bronchiectasis or honeycombing. No pleural effusion. The heart size is normal. There are coron [place] artery calcifications. There are changes of coronary artery bypass grafting. There is no pulmonar y embolus. There is mild thoracic spondylosis. Again seen are left seventh through 10th rib fractures . CT abdomen and pelvis: The liver is normal. The gallbladder is distended and contains gallstones. Gal lbladder wall thickening is noted. There is trace pericholecystic ascites. Calcifications in the sple en are consistent with old granulomatous disease. The pancreas and adrenal glands are normal. There i s cortical thinning of the kidneys. There is a 16 mm enhancing mass in right kidney. There are cysts in the kidneys measuring up to 7 mm on the left. There is calcified atherosclerosis of the aorta and many of the other arteries. The bladder is distended. There is diverticulosis of the colon without ev idence of diverticulitis. The appendix is normal. There are no dilated loops of bowel. There are subc utaneous injection sites in anterior abdominal wall. There are no pathologically enlarged lymph nodes . There is severe lumbar spondylosis. IMPRESSION: 1. Acute cholecystitis. 2. 16 mm enhancing right kidney mass, consistent with renal cell carcinoma. 3. Mild emphysema and mild chronic interstitial lung disease. 4. Subacute left rib fractures. Reviewed, dictated and finalized at location E. RAFT ARMAMENT MECHANIC
--- NOTE | ~2023-09-13 | XR_ITS ---
EXAMINATION: XR chest 1V portable DATE: 09/13/2023 19:05 INDICATION: Weakness. TECHNIQUE: A single frontal view of the chest was obtained on 2 radiographs. COMPARISON: Chest 2 views 09/01/2023 FINDINGS: The lung volumes are small. There is chronic relative elevation of left hemidiaphragm. Ther e is a staple line in left lung. There are interstitial opacities in right mid and lower lung zones a nd all left lung zones. No pleural effusion or pneumothorax. The heart size is normal. Median sternot gamaliel wires are noted. IMPRESSION: 1. Small lung volumes with diffuse lung disease, likely atelectasis and chronic lung disease. Reviewed, dictated and finalized at location E. AL SERVICE CHIEF
--- NOTE | 2023-09-13 18:46 | ECG_ITS ---
Measurements Intervals [place] Rate: 108 P: 58 DE: 128 QRS: 39 QRSD: 98 T: 93 QT: 350 QTc: 470 Interpretive Statements SINUS TACHYCARDIA INCOMPLETE RIGHT BUNDLE BRANCH BLOCK BASELINE ARTIFACT- I, III, AVR, AVL, AVF, V4-V6 ABNORMAL ECG COMPARED TO ECG 09/01/2023 17:08:42 SINUS TACHYCARDIA NOW PRESENT Electronically Signed On 09-13-2023 19:24:16 FOUNDRY TECHNICIAN by Sid Garcia D.O.
[2023-09-13 19:17] LABS: Basophils Absolute Auto 0.1 K/mm3 (0.0-0.1); Basophils Percent Auto 0.3 % (0.2-1.2); Eosinophils Percent Auto 0.1 % (0-4.4); Hematocrit 43.8 % (42.0-52.0); Hemoglobin 13.9 g/dL (14.0-18.0); Immature Granulocyte Absolute 0.27 K/mm3 (0.00-0.031); Immature Granulocyte Percent A 1.4 % (0-0.5); Lymphocytes Absolute Auto 0.68 K/mm3 (0.9-3.2); Lymphocytes Percent Auto 3.5 % (18.3-44.2); Mean Corpuscular HGB Conc 31.7 g/dl (32-36); Mean Corpuscular Hemoglobin 26.7 pg (26-34); Mean Corpuscular Volume 84.1 fl (80-100); Mean Platelet Volume 9.9 fl (7.4-10.4); Monocytes Absolute Auto 0.9 K/mm3 (0.1-0.6); Monocytes Percent Auto 4.9 % (2.6-8.5); Neutrophils Absolute Auto 17.4 K/mm3 (1.3-6.7); Neutrophils Percent Auto 89.8 % (45.5-73.1); Platelet Count Result 209 k/mm3 (150-375); Red Blood Count 5.21 M/mm3 (4.6-6.20); Red Cell Distribution Width 15.6 % (11.5-14.5); White Blood Count 19.3 K/mm3 (4.5-10.0)
[2023-09-13 19:29] LABS: Alanine Aminotransferase 17 U/L (6-50); Albumin Level 3.1 g/dL (3.5-5.1); Alkaline Phosphatase 91 U/L (38-126); Anion Gap 8 mmol/L (8-16); Aspartate Amino Transferase 19 U/L (17-59); Bilirubin,Total 0.8 mg/dL (0.2-1.3); Blood Urea Nitrogen 19 mg/dL (9-20); Calcium 9.8 mg/dL (8.4-10.2); Carbon Dioxide 28 mmol/L (22-30); Chloride 93 mmol/L (98-107); Estimated CRCL calculation 83 ml/min; Estimated Glomerular Filt Rate > 60; Glucose 195 mg/dL (65-110); Potassium 3.7 mmol/L (3.4-5.0); Sodium 129 mmol/L (137-145)
--- NOTE | 2023-09-13 19:45 | PC.NURSE ---
This RN assumed care of patient. This Rn too patient report from SULEMAN Altman.
--- NOTE | 2023-09-13 20:27 | ED.GENADULT ---
HPI - General Adult General Chief complaint: Weakness Stated complaint: TIRED ALL DAY Time Seen by Provider: 09/13/23 19:33 History of Present Illness HPI narrative: Patient 73-year-old gentleman who presents the emergency department with chief complaint of generalized weakness chest wall pain and Shortness of breath. Patient has history of lung transplant also history of recent gastritis that has been started on Carafate for patient has had a fall recently with multiple rib fractures the patient was initially admitted to our facility and then later on was admitted at [facility] and discharged on Saturday the patient states that he has been home for several days and then has started to get progressively more painful with breathing and also has become progressively weaker. Related Data Home Medications Medication Instructions Recorded Confirmed cetirizine 10 mg tablet (Zyrtec) 10 mg PO DAILY PRN allergies 12/16/20 09/01/23 fluticasone propionate 50 1 spray intranasal Q12H 12/16/20 09/01/23 mcg/actuation nasal spray,suspension multivitamin 1 tablet PO DAILY 12/16/20 09/01/23 mycophenolate sodium 360 mg 360 mg PO BID 12/16/20 09/02/23 tablet,delayed release (Myfortic) alprazolam 0.5 mg tablet 0.25 mg PO BID PRN Anxiety 12/27/20 09/02/23 azithromycin 500 mg tablet 500 mg PO USEASDIRECTD 12/27/20 09/02/23 (Zithromax) cholecalciferol (vitamin D3) 25 5,000 unit PO DAILY 12/27/20 09/01/23 mcg (1,000 unit) capsule citalopram 40 mg tablet (Celexa) 40 mg PO DAILY 12/27/20 09/01/23 diclofenac sodium 1 % topical gel 2 g topical BID 12/27/20 09/02/23 (Voltaren) nitroglycerin 0.3 mg sublingual 0.3 mg sublingual Q5M PRN Chest 12/27/20 09/01/23 tablet (Nitrostat) Pain omeprazole 40 mg capsule,delayed 40 mg PO DAILY 12/27/20 09/01/23 release polyethylene glycol 3350 17 17 g PO DAILY 12/27/20 09/01/23 gram/dose oral powder (Miralax) rosuvastatin 20 mg tablet (Crestor) 20 mg PO DAILY 12/27/20 09/01/23 sulfamethoxazole 800 1 tablet PO .MWF 12/27/20 09/02/23 mg-trimethoprim 160 mg tablet (Bactrim DS) zolpidem 10 mg tablet (Ambien) 10 mg PO .QHS PRN Sleep 12/27/20 09/01/23 insulin glargine 100 unit/mL 30 unit subcut QPM 06/27/21 09/02/23 subcutaneous solution (Lantus U-100 Insulin) potassium chloride 20 mEq 20 meq PO BID 06/27/21 09/02/23 tablet,extended release tacrolimus 0.5 mg capsule, 1 mg PO Q12H 06/27/21 09/02/23 immediate-release acetaminophen 500 mg oral powder 1,000 mg PO Q6H PRN Pain (Scale 01/10/22 09/01/23 packet Score 1-3) amlodipine 10 mg tablet 10 mg PO DAILY 01/10/22 09/01/23 carvedilol 25 mg tablet 25 mg PO Q12H 01/10/22 09/01/23 insulin lispro 100 unit/mL 20 unit subcut AC 01/10/22 09/01/23 subcutaneous pen acyclovir 200 mg capsule 200 mg PO BID 09/02/23 09/02/23 aspirin 81 mg capsule 81 mg PO DAILY 09/02/23 09/02/23 isosorbide mononitrate 60 mg 90 mg PO BID 09/02/23 09/02/23 tablet,extended release 24 hr prednisone 10 mg tablet 10 mg PO DAILY 09/02/23 09/02/23 Allergies Allergy/AdvReac Type Severity Reaction Status Date / Time No Known Allergies Allergy Unverified 07/31/23 14:48 Review of Systems Review of Systems: A 10 system review of systems was completed on the patient and is negative except for what is stated in the HPI. Nursing and ancillary documentation was reviewed. [facility] Past Medical History Medical History Chronic kidney disease, stage 3 Coronary artery disease Deep vein thrombophlebitis of right leg (10/2020) Depression Hypertension Obstructive sleep apnea Pneumonia due to COVID-19 virus Right renal mass Followed by [facility] in [place] with upcoming plans for IR biopsy and ablation. Skin cancer Type 2 diabetes mellitus Surgical History Surgical History History of cardiac catheterization History of coronary arter
[2023-09-13] MEDS: SODIUM CHLORIDE 0.9% IV 1,000 ML 999 ML IV CONT (20:33)
[2023-09-13] MEDS: MORPHINE SULFATE (*CRX) 4 MG/ML INJ IV PUSH (20:34)
[2023-09-13 20:48] LABS: Magnesium 1.8 mg/dL (1.6-2.3)
[2023-09-13 21:00] LABS: NT Pro B Type Natriuretic Pept 2070 pg/mL (19.9-100); Troponin I < 0.012 ng/mL (0.000-0.034)
[2023-09-13 21:01] LABS: INR 1.3; Partial Thromboplastin Time 38.1 SECONDS (22.3-36.8); Prothrombin Time 16.9 Seconds (11.1-14.7)
[2023-09-13 21:03] LABS: Lactic Acid Reflex 1.1 mmol/L (0.7-2.0)
[2023-09-13 21:09] LABS: Procalcitonin 1.6 ng/mL
[2023-09-13 21:28] LABS: Influenza A QL RT-PCR Negative (Negative); Influenza B QL RT-PCR Negative (Negative); SARS-CoV-2 RNA PCR Negative (Negative)
[2023-09-13 22:17] LABS: Appearance Urine Clear (Clear); Bacteria Urine None Seen /hpf; Bilirubin Urine Negative (Negative); Blood Urine Negative (Negative); Color Urine Yellow (Yellow); Glucose Urine UA 3+ mg/dL (Negative); Ketones Urine Trace mg/dL (Negative); Leukocyte Esterase Ur Negative LEU/UL (Negative); Nitrate Urine Negative (Negative); Non Pathogenic Casts 0-2; Protein Urine 2+ mg/dL (Negative); RBC Urine 0-2 /hpf (0-2); Squamous Epithelial Cell Urine None seen /hpf (Few); Urobilinogen Urine 0.2 mg/dL (<2.0); WBC Urine 0-5 /hpf
[2023-09-13] MEDS: MEROPENEM 1 GM/NS 100 ML 1 GM/100 ML BAG IVPB (22:17)
[2023-09-13 22:23] LABS: Add Urine Microscopic? YES; Specific Grav Ur 1.056 (1.001-1.035)
[2023-09-13] MEDS: SODIUM CHLORIDE 0.9% IV 1,000 ML 150 ML IV CONT (23:41)
[2023-09-14] VITALS (59 sets, daily range): BP systolic 129–170; BP diastolic 77–131; PULSE 114–139; RESP 14–38; O2SAT 92–100
--- NOTE | 2023-09-14 01:42 | PC.NURSE ---
This RN went to provide comfort measures. This RN noted pt to be covered in blood, IV catheter intact and removed by pt laying on the bed. Pt had also removed oxygen tubing from nose. This RN replaced IV, gave pt a partial bed bath, and continued IV fluid infusing. EDP Dr. Queen made aware.
--- NOTE | 2023-09-14 02:04 | PC.NURSE ---
This RN contacted [facility] transfer center to give update on pt with IV line change, oxygen administration change, and maintenance fluid administration of 150mls/ hour.
[2023-09-14] MEDS: MEROPENEM 1 GM/NS 100 ML 1 GM/100 ML BAG IVPB ×2 (06:39→14:25)
[2023-09-14 11:48] LABS: Glucose Point of Care 235 mg/dl (65-105)
[2023-09-14] MEDS: LACTATED RINGERS 1,000 ML 999 ML IV CONT (11:54)
[2023-09-14 12:38] LABS: Basophils Absolute Auto 0.1 K/mm3 (0.0-0.1); Basophils Percent Auto 0.4 % (0.2-1.2); Hematocrit 41.2 % (42.0-52.0); Hemoglobin 12.6 g/dL (14.0-18.0); Immature Granulocyte Absolute 0.19 K/mm3 (0.00-0.031); Lymphocytes Percent Auto 4.3 % (18.3-44.2); Mean Corpuscular HGB Conc 30.6 g/dl (32-36); Mean Corpuscular Hemoglobin 26.3 pg (26-34); Mean Corpuscular Volume 85.8 fl (80-100); Mean Platelet Volume 10.4 fl (7.4-10.4); Monocytes Absolute Auto 1.3 K/mm3 (0.1-0.6); Monocytes Percent Auto 6.8 % (2.6-8.5); Neutrophils Absolute Auto 16.1 K/mm3 (1.3-6.7); Neutrophils Percent Auto 87.5 % (45.5-73.1); Platelet Count Result 222 k/mm3 (150-375); Red Cell Distribution Width 15.7 % (11.5-14.5); White Blood Count 18.4 K/mm3 (4.5-10.0)
[2023-09-14 12:47] LABS: Alanine Aminotransferase 17 U/L (6-50); Alkaline Phosphatase 97 U/L (38-126); Anion Gap 15 mmol/L (8-16); Aspartate Amino Transferase 18 U/L (17-59); Bilirubin,Total 0.7 mg/dL (0.2-1.3); Blood Urea Nitrogen 19 mg/dL (9-20); Calcium 9.4 mg/dL (8.4-10.2); Carbon Dioxide 21 mmol/L (22-30); Chloride 98 mmol/L (98-107); Estimated CRCL calculation 95 ml/min; Estimated Glomerular Filt Rate > 60; Glucose 208 mg/dL (65-110); Potassium 3.6 mmol/L (3.4-5.0); Sodium 134 mmol/L (137-145)
[2023-09-14] MEDS: methylPREDNISolone SOD SUCC 40 MG VIAL 10 MG IV PUSH (13:20)
[2023-09-14] MEDS: MORPHINE SULFATE (*CRX) 2 MG/ML INJ IV PUSH (16:39)
--- NOTE | 2023-09-14 16:56 | PC.NURSE ---
Attempted to call report, RN was unavailable to take report at 1625.
== END 2023-09-14 17:14 | disposition short-term general hospital (02) ==
PROVIDERS: Emergency Medicine; Emergency Provider Emergency Medicine; PCP Internal Medicine
DX: K81.0 Acute cholecystitis (principal); D72.829 Elevated white blood cell count, unspecified; I12.9 Hypertensive chronic kidney disease with stage 1 through stage 4 chronic kidney disease, or unspecified chronic kidney disease; E11.22 Type 2 diabetes mellitus with diabetic chronic kidney disease; N18.30 Chronic kidney disease, stage 3 unspecified; I25.10 Atherosclerotic heart disease of native coronary artery without angina pectoris; Z86.718 Personal history of other venous thrombosis and embolism; Z85.828 Personal history of other malignant neoplasm of skin; Z20.822 Contact with and (suspected) exposure to COVID-19; Z94.2 Lung transplant status; Z87.891 Personal history of nicotine dependence
CPT/HCPCS: 36415; 71045; 71275; 74177; 80053; 81001; 82948; 83605; 83735; 83880; 84145; 84484; 85025; 85610; 85730; 87040; 87636; 93005; 96361; 96365; 96366; 96368; 96375; 96376; 99285; J2185; J2270; J2920; J7030; J7120; Q9967

== ENCOUNTER 2024-02-10 12:09 | Outpatient (CLI) | payer MEDICARE, MEDICAID, SELFPAY ==
--- NOTE | ~2024-02-10 | XR_ITS ---
EXAMINATION: XR lumbar spine 2-3V DATE: 02/10/2024 12:26 INDICATION: Radiculopathy, lumbar region. TECHNIQUE: 3 views of lumbar spine were obtained. COMPARISON: CT abdomen and pelvis 09/13/2023 FINDINGS: There is 15 degrees dextroscoliosis of lumbar spine. There is 3 mm retrolisthesis of L2 on L3 and 4 mm anterolisthesis of L4 on L5. There is mild chronic anterior wedging of T12 and L1 vertebr al bodies. There is mild chronic height loss of L5 vertebral body. There is mildly decreased disc hei ght at L1-L2, L2-L3 and severely decreased disc height at L5-S1. There is multilevel facet joint oste oarthritis, severe in lower lumbar spine. There is a vascular stent in the area of superior mesenteri c artery. There is a double-J catheter in the area of the biliary tree. IMPRESSION: 1. Severe lower lumbar spondylosis. 2. Lumbar dextroscoliosis. Reviewed, dictated and finalized at location A.
== END 2024-02-10 12:10 | disposition home or self-care (01) ==
LOC: ANHASCIMG 12:14
PROVIDERS: PCP Internal Medicine; Visit Provider Clinical Nurse Specialist
DX: M47.26 Other spondylosis with radiculopathy, lumbar region (principal)
CPT/HCPCS: 72100

== ENCOUNTER 2024-02-25 13:17 | Outpatient (CLI) | payer MEDICARE, MEDICAID, SELFPAY ==
--- NOTE | ~2024-02-25 | MR_ITS ---
MRI of the lumbar spine Clinical History: Radiculopathy Technique: Axial T2-weighted images, and sagittal T1-weighted, T2-weighted, and T2 fat-sat images wer e acquired. Findings: No acute fracture seen. There is 3 mm retrolisthesis of L2 over L3. No suspicious bone sanaz ow signal abnormality seen. At L1-L2, there is mild degenerative disc narrowing. There is mild diffuse disc bulge and moderate fa cet arthropathy. No central canal stenosis. There is moderate to advanced left neural foraminal narro wing. Right neural foramen preserved. At L2-L3, there is moderate degenerative disc narrowing. Disc bulge and moderate facet arthropathy ar e present, with minimal central canal stenosis. There is severe left neural foraminal narrowing, and moderate to severe right neural foraminal narrowing. L3-L4, there is diffuse mild disc bulge and moderate facet arthropathy. No central canal stenosis. Th ere is mild bilateral neural foraminal narrowing. At L4-L5, there is mild diffuse disc bulge and severe facet arthropathy. There is mild central canal stenosis. There is mild right neural foraminal narrowing. Left neural foramen preserved. At L5-S1, there is moderate to advanced degenerative disc narrowing. There is disc bulge with advance d facet arthropathy. No central canal stenosis. There is severe right neural foraminal narrowing, and mild left neural foraminal narrowing. Paravertebral soft tissues are unremarkable. Impression: Moderate degenerative spondylosis, as detailed above. 3 mm retrolisthesis of L2 over L3. Reviewed, dictated and finalized at [facility]. Impression: Moderate degenerative spondylosis, as detailed above. 3 mm retrolisthesis of L2 over L3.
== END 2024-02-25 13:18 | disposition home or self-care (01) ==
LOC: ANHIMG 13:18
PROVIDERS: PCP Internal Medicine; Visit Provider Clinical Nurse Specialist
DX: M47.26 Other spondylosis with radiculopathy, lumbar region (principal); M21.371 Foot drop, right foot
CPT/HCPCS: 72148

== ENCOUNTER 2024-05-06 12:55 | Outpatient (CLI) | payer MEDICARE, MEDICAID, SELFPAY ==
--- NOTE | 2024-05-06 14:30 | NEURO_ITS ---
Impression: # Complains of numbness of feet. # Motor/Sensory axonal neuropathy. # Decreased motor unit potentials on needle/EMG exam without fibs. Nerve Conduction Studies Anti Sensory Summary Table Stim Site NR Peak (ms) P-T Amp (?V) Site1 Site2 Delta-P (ms) Dist (cm) Clint (m/s) Left Sup Fibular Anti Sensory (Ant Lat Mall) NO RESPONSE 14 cm NR 14 cm Ant Lat Mall 16.0 Right Sup Fibular Anti Sensory (Ant Lat Mall) NO RESPONSE 14 cm NR 14 cm Ant Lat Mall 16.0 Left Sural Anti Sensory (Lat Mall) NO RESPONSE Calf NR Calf Lat Mall 16.0 Right Sural Anti Sensory (Lat Mall) NO RESPONSE Calf NR Calf Lat Mall 16.0 Motor Summary Table Stim Site NR Onset (ms) O-P Amp (mV) Site1 Site2 Delta-0 (ms) Dist (cm) Clint (m/s) Left Peroneal Motor (Vastus Med) Ankle 4.0 1.7 Popit Ankle 9.8 41.0 42 Popit 13.8 0.7 Right Peroneal Motor (Vastus Med) Ankle 4.1 1.1 Popit Ankle 10.4 39.0 38 Popit 14.5 0.9 Left Tibial Motor (Abd Reddy Brev) Ankle 4.5 2.5 Knee Ankle 8.9 42.0 47 Knee 13.4 1.5 Right Tibial Motor (Abd Reddy Brev) Ankle 4.9 0.5 Knee Ankle 10.2 40.0 39 Knee 15.1 0.9 F Wave Studies NR F-Lat (ms) L-R F-Lat (ms) Left Peroneal (Mrkrs) (EDB) 50.28 Right Peroneal (Mrkrs) (EDB) DISPERSED RESPONSE NR Left Tibial (Mrkrs) (Abd Hallucis) 50.46 Right Tibial (Mrkrs) (Abd Hallucis) DISPERSED RESPONSE NR EMG Side Muscle Nerve Root Ins Act Fibs Amp Dur Recrt Comment Right AntTibialis Dp Br Fibular L4-5 Nml Nml Nml >12ms +1 Right Gastroc Tibial S1-2 Nml Nml Nml >12ms +1 Right Fibularis Long Sup Br Fibular L5-S1 Nml Nml Nml >12ms +1 Right Flex Dig Long Tibial L5-S2 Nml Nml Nml >12ms +2 Right Ext Dig Brev Dp Br Fibular L5, S1 Nml Nml Nml >12ms +2 Left AntTibialis Dp Br Fibular L4-5 Nml Nml Nml >12ms +1 Left Gastroc Tibial S1-2 Nml Nml Nml >12ms +1 Left Fibularis Long Sup Br Fibular L5-S1 Nml Nml Nml >12ms +1 Left Flex Dig Long Tibial L5-S2 Nml Nml Nml >12ms +2 Left Ext Dig Brev Dp Br Fibular L5, S1 Nml Nml Nml >12ms +2 Right QuadratusFem QuadFemoris L4-5, S1 Nml Nml Nml >12ms +1 Left QuadratusFem QuadFemoris L4-5, S1 Nml Nml Nml >12ms +1 MTDD
== END 2024-05-06 12:56 | disposition home or self-care (01) ==
LOC: ANHNEURO 12:56
PROVIDERS: PCP Internal Medicine; Visit Provider Anesthesiology Pain Medicine
DX: E11.9 Type 2 diabetes mellitus without complications (principal); I82.409 Acute embolism and thrombosis of unspecified deep veins of unspecified lower extremity; M21.371 Foot drop, right foot; M54.16 Radiculopathy, lumbar region; Z79.01 Long term (current) use of anticoagulants
CPT/HCPCS: 95886; 95910

== ENCOUNTER 2024-09-08 10:02 | Day surgery (SDC) | payer MEDICARE, MEDICAID, SELFPAY ==
[2024-09-07 14:06] VITALS: BMI 33.0
--- NOTE | ~2024-09-08 | XR_ITS ---
INTRAOPERATIVE FLUOROSCOPY: CLINICAL HISTORY: 74 years old Male; PAMELA L4-5,L5-S-1 TRANSFORAMINAL EPIDURAL STEROID INJ PROCEDURE COMMENTS: Limited intraoperative fluoroscopy of the lower lumbar spine was performed. CUMULATIVE DOSE: 10.2 mGy FLUOROSCOPY TIME: 25.6 seconds FINDINGS/IMPRESSION: As above Please refer to operative note for further details. Reviewed, dictated and finalized at location A. [employer]
[2024-09-08 10:55] VITALS: BP 90/60; PULSE 88; RESP 18; TEMP 36.6; O2SAT 98
--- NOTE | 2024-09-08 11:18 | WPDHPUPDATE1 ---
History and Physical Update Update Date/Time: 09/08/24 11:18 History and Physical has been reviewed, including an updated exam of the patient. There are NO changes in the patient's condition. Risks, benefits, and alternatives have been discussed and questions answered. Patient agrees to proceed with procedure.
--- NOTE | 2024-09-08 11:19 | P.OP_ITS ---
Procedure Note - Detailed Date of Procedure 09/08/24 Pre-op Diagnosis Lumbar Radiculopathy, Lumbar spinal stenosis Post-op Diagnosis Same Procedure Performed Bilateral Lumbosacral Transforaminal Epidural Steroid Injection under Fluorosco pic Guidance and with Contrast Control at L4-5, L5-S1. Surgeon Facundo Tolentino MD Anesthesia Local Description of Procedure INFORMED CONSENT: Risks, benefits and alternatives to the procedure were discussed in detail with the patient who expressed explicit understanding and consent to proceed. Patient was informed verbally and in written form regarding the risks associated with the procedure including the low risk of serious infection, bleeding/bruising, allergic reaction, nerve or organ injury, paralysis, procedural site pain or discomfort, worsening pain and/or mobility, failure to treat and/or disfigurement. The patient expressed explicit understanding and consent to proceed. All materials required for the procedure were available prior to procedure start. Site and side was marked prior to procedure and confirmed in the presence of the patient. PROCEDURE IN DETAIL: The patient was brought to the procedural suite and placed in the prone position. Patient was made comfortable with use of pillows under the head/chest, hips and ankles. Skin overlying the injection site was prepared broadly with ChloraPrep applicator and draped in a sterile manner. Aseptic technique was employed throughout. The endplates of the vertebral body at the site of interest were aligned in the AP view. Ipsilateral oblique angulation was utilized to better visualize the neuroforamen of interest. Local anesthesia was established by infiltration with approximately 5 mL of 0.5% PF lidocaine via a 1-1/2 inch 27-gauge needle. A 22-gauge 5.0 inch [place] (pencil point) spinal needle was advanced until the needle approached the 6 o'clock position on the pedicle just superior to the exiting nerve root. on the right at L4-5. Lateral view was utilized to confirm appropriate position of the needle tip within the superior and posterior portion of the respective foramen. In an AP view, 1 mL of Omnipaque 300 contrast medium was injected after negative aspiration for CSF, blood or other bodily fluid, showing appropriate neurogram without evidence of intravascular or intrathecal spread of contrast. Digital subtraction imaging was used with an additional 1ml of the same contrast medium to confirm absence of intravascular contrast spread. A 1mL solution containing 1.5 mg of betamethasone was injected after negative repeat aspiration. Appropriate spread of the injectate was confirmed with washout of previously injected contrast. No tahira thesias were elicited. Needle was removed completely intact without difficulty. The same exact procedure was repeated for all remaining levels on the ipsilateral side, right L5-S1 neuroforamen, modified as necessary to accommodate for the new target location with identical findings and results and no evidence of complication. The same exact procedure was repeated for all remaining levels on the contralateral side, left L4-5, L5-S1 neuroforamen, modified as necessary to accommodate for the new target location with identical findings and results and no evidence of complication. Images were saved and documented in the patient chart. Patient's skin was cleaned and sterile bandage applied. The patient tolerated the procedure well. The patient was transported to the recovery area in stable condition where they were observed for an appropriate amount of time prior to discharge, without evidence of complication. The patient was instructed to avoid excessive activity for the next 48 hours, including climbing and frequent use of stairs. Showers only for 48 hours. They were instructed not to drive or operate heavy machinery for 24 hours. They are to monitor for severe headaches, fevers, chills, night sweats, erythema/swelling at the site or any other signs of infection, bleeding/bruising, bowel or bladder changes as well as new pain, weakness or numbness in the upper or lower extremit y. Should they notice these changes, they are instructed to call our office immediately or report directly to the nearest Emergency Department if no answer or if after posted office hours. COMPLICATIONS: None COMMENTS: None CONTRAST WASTED: 22 mL Omnipaque 300. STEROID WASTED: 0 mg of betamethasone. Complications No immediate complications Condition Stable Disposition Same day [facility] Billing Surgery - Charge Forward: Surgery Billing
[2024-09-08 11:33] VITALS: BP 134/67; PULSE 94; RESP 17; O2SAT 92
[2024-09-08 11:40] VITALS: BP 128/62; PULSE 93; RESP 17; O2SAT 92
[2024-09-08] MEDS: LIDOCAINE HCL 2% PF INJ 5 ML VIAL 2 ML INFILTRATE (11:49)
[2024-09-08] MEDS: BETAMETHASONE SODIUM PHOSPHATE PF INJ 6 MG/ML VIAL INFILTRATE (11:49)
[2024-09-08 11:50] VITALS: BP 99/59; PULSE 92; RESP 18; O2SAT 96
[2024-09-08] MEDS: LIDOCAINE HCL 1% PF INJ 5 ML VIAL 3 ML INFILTRATE (11:51)
== END 2024-09-08 12:05 | disposition home or self-care (01) ==
PROVIDERS: PCP Internal Medicine; Visit Provider Anesthesiology Pain Medicine
PROC: (CPT 64483; principal; 2024-09-08 11:45)
DX: M54.16 Radiculopathy, lumbar region (principal); M48.062 Spinal stenosis, lumbar region with neurogenic claudication
CPT/HCPCS: 64483 ×2; 64484 ×2; 64494; 99199

== ENCOUNTER 2024-09-23 14:17 | Outpatient (NON) | payer MEDICARE, MEDICAID, SELFPAY ==
[2024-09-23 18:40] LABS: Add Urine Microscopic? YES; Appearance Urine Clear (Clear); Bacteria Urine None Seen /hpf; Bilirubin Urine Negative (Negative); Blood Urine Negative (Negative); Color Urine Dark Yellow (Yellow); Glucose Urine UA 3+ mg/dL (Negative); Hyaline Casts Urine Present /lpf; Ketones Urine Negative (Negative); Leukocyte Esterase Ur Negative LEU/UL (Negative); Nitrate Urine Negative (Negative); Protein Urine 2+ mg/dL (Negative); RBC Urine 0-2 /hpf (0-2); Specific Grav Ur 1.026 (1.001-1.035); Squamous Epithelial Cell Urine None Seen /hpf (Few); Urobilinogen Urine 0.2 mg/dL (<2.0); WBC Urine 0-5 /hpf (0-3)
== END 2024-09-23 14:18 | disposition home or self-care (01) ==
LOC: ANHGOSHLAB 14:18
PROVIDERS: PCP Internal Medicine; Visit Provider Nurse Practitioner
DX: R35.0 Frequency of micturition (principal)
CPT/HCPCS: 81001

== ENCOUNTER 2025-02-15 08:20 | Outpatient (CLI) | payer MEDICARE, OTHER, MEDICAID, SELFPAY ==
--- NOTE | ~2025-02-15 | MR_ITS ---
MRI of the lumbar spine Clinical History: Radiculopathy Technique: Axial T2-weighted images, and sagittal T1-weighted, T2-weighted, and and T2 fat-sat images were acquired. COMPARISON: 02/25/2024 Findings: 4 mm retrolisthesis of L2 over L3 noted. No acute fracture. No suspicious bone marrow signa l abnormality. At L1-L2, there is mild degenerative change. There is diffuse disc bulge with moderate facet arthropa thy. There is mild central canal stenosis. There is mild left neural foraminal narrowing. Right neura l foramen preserved. At L2-L3, there is advanced degenerative disc narrowing. There is disc bulge with probable small supe rimposed inferior disc extrusion. There is severe facet arthropathy. There is severe spinal canal niesha nosis/thecal sac compression and severe bilateral neural foraminal compromise, left worse than right. At L3-L4, there is mild disc bulge with moderate to severe facet arthropathy. No central canal stenos is. There is minimal neural foraminal narrowing. At L4-L5, there is mild disc bulge and severe facet arthropathy. There is moderate central canal sten osis. There is minimal right neural foraminal narrowing. Left neural foramen preserved. At L5-S1, there is moderate degenerative disc narrowing. There is diffuse disc bulge with advanced fa cet arthropathy. No central canal stenosis. There is moderate to advanced right neural foraminal narr owing, and moderate left neural foraminal narrowing. Paravertebral soft tissues are unremarkable. Impression: Advanced degenerative spondylosis, worst at L2-L3. Please see details above. 4 mm retrolisthesis of L2 over L3. Reviewed, dictated and finalized at [facility]. Impression: Advanced degenerative spondylosis, worst at L2-L3. Please see details above. 4 mm retrolisthesis of L2 over L3.
== END 2025-02-15 08:21 | disposition home or self-care (01) ==
LOC: MICIMG 08:21
PROVIDERS: PCP Internal Medicine; Visit Provider Nurse Practitioner Family
DX: M47.26 Other spondylosis with radiculopathy, lumbar region (principal)
CPT/HCPCS: 72148